=== PATIENT | male | born 1975 | race Two or more races ===

== ENCOUNTER 2024-04-10 15:50 | Emergency (ER) | payer OTHER ==
[~2024-04-10] VITALS: Ht 167.6 cm; Wt 90.7 kg
[2024-04-10 16:00] VITALS: BP 147/99; O2SAT 99
== END 2024-04-10 16:28 | disposition home or self-care (01) ==
LOC: ER 15:56
DX: S69.92XA Unspecified injury of left wrist, hand and finger(s), initial encounter (principal); X58.XXXA Exposure to other specified factors, initial encounter; Y93.89 Activity, other specified; Y92.89 Other specified places as the place of occurrence of the external cause; Y99.8 Other external cause status